=== PATIENT | male | born 1985 | race Hispanic/Latino ===

== ENCOUNTER 2020-10-28 20:12 | Emergency (ER) | payer SELFPAY ==
--- NOTE | 2020-10-28 21:17 | RAD REPORT ---
EXAM DESCRIPTION: RAD - Chest Single View - 10/28/2020 8:44 pm CLINICAL HISTORY: PAIN Chest pain. COMPARISON: Chest Single View dated 10/08/2016; Chest Single View dated 07/26/2016; Chest Single View d ated 06/10/2016; Chest Single View dated 06/09/2016 FINDINGS: Portable technique limits examination quality. Mild interstitial pulmonary opacities are present bilaterally which may represent infection or pulmon elizabeth edema. The heart is normal in size. No displaced fractures.
[2020-10-28] MEDS ORDERED: ONDANSETRON 4 MG/2 ML VIAL ONE (21:30)
[2020-10-28] MEDS ORDERED: KETOROLAC 30 MG/ML INJ ONE (21:30)
[2020-10-28] MEDS ORDERED: MORPHINE 4 MG/ML SYR ONE (21:30)
[2020-10-28 21:50] LABS: Absolute Lymphocytes (CBC) 3.3 K/uL (0.7-4.9); Basophils % 0.4 % (0-1.3); Lymphocytes % 37.9 % (15.3-44.8); MPV 9.1 fL (7.6-11.3)
[2020-10-28 21:55] LABS: Protime INR 1.03
[2020-10-28 22:03] LABS: ALT/SGPT 26 U/L (12-78); AST/SGOT 9 U/L (15-37); Albumin 3.7 g/dL (3.4-5.0); Alkaline Phosphatase 112 U/L (45-117); BUN Blood Urea Nitrogen 15 mg/dL (7-18); Bicarbonate 26 mmol/L (21-32); Bilirubin Direct < 0.1 mg/dL (0-0.2); Bilirubin Total 0.2 mg/dL (0.2-1.0); Glucose Level 100 mg/dL (74-106); Magnesium 2.2 mg/dL (1.8-2.4); NT PRO-BNP 15 pg/mL (<125); Potassium 3.9 mmol/L (3.5-5.1); Protein, Total 7.3 g/dL (6.4-8.2); Sodium Level 141 mmol/L (136-145); Troponin (Emerg Dept Use Only) < 0.02 ng/mL (0.0-0.045)
--- NOTE | 2020-10-28 22:11 | RAD REPORT ---
EXAM DESCRIPTION: CT - Chest Abdomen Pelvis W Cont - 10/28/2020 9:55 pm CLINICAL HISTORY: Chest and abdomen pain. Chest pain;Dyspnea COMPARISON: Abdomen Pelvis W Contrast dated 10/08/2016; Abdomen Pelvis W Contrast dated 06/09/2016 TECHNIQUE: Approximately 100 mL nonionic IV contrast was administered to the patient. All CT scans are performed using dose optimization technique as appropriate and may include automated exposure control or mA/KV adjustment according to patient size. FINDINGS: The lungs are clear.No pleural or pericardial effusion.No intrathoracic adenopathy. The liver, spleen, pancreas, adrenal glands and kidneys are within normal limits. No bowel obstruction, free air, free fluid or abscess. Appendectomy. No pathologic lymphadenopathy i n the abdomen or pelvis. No worrisome osseous finding. IMPRESSION: No acute abnormality detected.
--- NOTE | 2020-10-28 22:29 | ER ---
Nurse's Notes [facility] Name: Jarad Alexandra Age: 35 yrs Sex: Male : 1985 Arrival Date: 10/28/2020 Time: 20:16 Bed 19 Private MD: Diagnosis: Strain of muscle and tendon of back wall of thorax;Dyspnea;Low back pain Presentation: 10/28 20:24 Chief complaint: Patient states: he was transferring his step-daughter yesterday and bb did something to his back on the right side went to a chiropractor last night and today now symptoms are worse pain with respirations and difficulty breathing. Coronavirus screen: At this time, the client does not indicate any symptoms associated with coronavirus-19. Ebola Screen: No symptoms or risks identified at this time. Initial Sepsis Screen: Does the patient meet any 2 criteria? No. Patient's initial sepsis screen is negative. Does the patient have a suspected source of infection? No. Patient's initial sepsis screen is negative. Risk Assessment: Do you want to hurt yourself or someone else? Patient reports no desire to harm self or others. Onset of symptoms was October 27, 2020. 20:24 Method Of Arrival: Wheelchair bb 20:24 Acuity: CHRIS 2 bb Triage Assessment: 20:26 General: Appears uncomfortable, Behavior is cooperative, anxious. Pain: Complains of bb pain in back Pain currently is 10 out of 10 on a pain scale. Neuro: Level of Consciousness is awake, alert, obeys commands, Oriented to person, place, time, situation. Cardiovascular: Capillary refill < 3 seconds Patient's skin is warm and dry. Respiratory: Reports pain with respiration Respiratory effort is shallow, Respiratory pattern is tachypnea Onset: The symptoms/episode began/occurred yesterday, the patient has mild shortness of breath. Derm: Skin is pink, warm \\T\\ dry. Musculoskeletal: Circulation, motion, and sensation intact. Historical: - Allergies: 20:26 Latex, Natural Rubber; bb - Home Meds: 20:26 None [Active]; bb - PMHx: 20:26 Panic Attacks; bb - PSHx: 20:26 Appendectomy; bb - Immunization history:: Adult Immunizations up to date. - Social history:: Smoking status: Patient reports the use of cigarette tobacco products, smokes one-half pack cigarettes per day, Patient uses alcohol, occasionally. Patient/guardian denies using street drugs. Screenin:03 Abuse screen: Denies threats or abuse. Nutritional screening: No deficits noted. ea Tuberculosis screening: No symptoms or risk factors identified. Fall Risk None identified. Assessment: 21:22 General: Appears distressed, uncomfortable, Behavior is calm, cooperative, appropriate ad5 for age. Pain: Complains of pain in binta mid back that radiates to upper back and sides. Neuro: No deficits noted. Level of Consciousness is awake, alert, obeys commands, Oriented to person, place, time, situation, Appropriate for age Waiter are equal bilaterally. Cardiovascular: Reports shortness of breath, Heart tones S1 S2 present Capillary refill < 3 seconds Patient's skin is warm and dry. Pulses are all present. Rhythm is regular. Respiratory: Airway is patent Respiratory effort is even, shallow, Respiratory pattern is regular, symmetrical, Breath sounds are clear bilaterally. Onset: The symptoms/episode began/occurred yesterday, the patient has severe shortness of breath. GI: No deficits noted. No signs and/or symptoms were reported involving the gastrointestinal system. : No deficits noted. No signs and/or symptoms were reported regarding the genitourinary system. Derm: redness/bruising noted to L mid back. Musculoskeletal: Reports pain in back since yesterday s/p "caught my step-daughter while putting her in the wheelchair". Pt denies fall, reports pain since incident. Has been to chiropracter x 2 since with no improvement in s/s. 22:25 Reassessment: Patient appears in no apparent distress at this time. Patient and/or ad5 family updated on plan of care and expected duration. Pain level reassessed. Patient is alert, oriented x 3, equal unlabored respirations, skin warm/dry/pink. Patient states feeling better. Vital Signs: 20:24 BP 135 / 95; Pulse 88; Resp 24 S; Temp 98.8(O); Pulse Ox 100% on R/A; Weight 120.2 kg bb (R); Height 6 ft. 2 in. (187.96 cm) (R); Pain 10/10; 21:28 BP 133 / 92; Pulse 88; Resp 21 S; Pulse Ox 97% on R/A; ad5 22:25 BP 123 / 82; Pulse 79; Resp 20 S; Pulse Ox 98% on R/A; ad5 20:24 Body Mass Index 34.02 (120.20 kg, 187.96 cm) bb ED Course: 20:16 Patient arrived in ED. es 20:26 Triage completed. bb 20:26 Arm band placed on Patient placed in waiting room, Patient notified of wait time. bb Family accompanied patient. 20:44 XRAY Chest (1 view) In Process Unspecified. EDMS 21:03 Felice Razo MD is Attending Physician. aggie 21:03 Patient has correct armband on for positive identification. Bed in low position. Call ea light in reach. Side rails up X2. 21:08 Emanuel Fox is Primary Nurse. ad5 21:17 EKG done, by ED staff, reviewed by Felice Razo MD. mb4 21:24 Inserted saline lock: 20 gauge in right forearm, using aseptic technique. Blood ad5 collected. 21:25 quality assurance monitor body on. Pulse ox on. NIBP on. Door closed. Noise minimized. Head of bed ad5 elevated. 21:43 CT Chest, Abdomen, Pelvis - W/Contrast Sent. ad5 21:55 CT Chest, Abdomen, Pelvis - W/Contrast In Process Unspecified. EDMS 22:28 Doug Tolbert MD is Referral Physician. aggie 22:38 INCENTIVE SPIROMETRY Sent. ad5 22:49 No provider procedures requiring assistance completed. IV discontinued, intact, ad5 bleeding controlled, No redness/swelling at site. Pressure dressing applied. Administered Medications: 21:18 Drug: Ketorolac 30 mg Route: IVP; Site: right forearm; ad5 22:38 Follow up: Response: No adverse reaction; Pain is decreased; RASS: Alert and Calm (0) ad5 21:21 Drug: morphine 4 mg Route: IVP; Site: right forearm; ad5 22:38 Follow up: Response: No adverse reaction; Pain is decreased; RASS: Alert and Calm (0) ad5 21:21 Drug: Zofran (Ondansetron) 4 mg Route: IVP; Site: right forearm; ad5 22:37 Follow up: Response: No adverse reaction ad5 22:49 Drug: Valium (diazepam) 5 mg Route: PO; ad5 Outcome: 22:28 Discharge ordered by . aggie 22:49 Discharged to home ambulatory, with significant other. ad5 22:49 Condition: stable 22:49 Discharge instructions given to patient, significant other, Instructed on discharge instructions, follow up and referral plans. medication usage, Demonstrated understanding of instructions, follow-up care, medications, Prescriptions given X 3. 22:50 Patient left the ED. ad5 Signatures: Dispatcher [employer] Felice Cramer MD MD cha Salyer, Edna es Ballard, Brenda, RN RN bb Antunez, Elena, RN RN ea Baxter, Mackenzie [facility] Emanuel Fox ad5
--- NOTE | 2020-10-28 22:29 | EDPHYS ---
Physician Documentation [facility] Name: Jarad Alexandra Age: 35 yrs Sex: Male : 1985 Arrival Date: 10/28/2020 Time: 20:16 Bed 19 Private MD: ED Physician Felice Razo HPI: 10/28 21:36 This 35 yrs old Male presents to ER via Wheelchair with complaints of aggie Breathing Difficulty, injury to ribs, back flank with pain. 21:36 The patient has shortness of breath with light activity. Onset: The symptoms/episode aggie began/occurred today. Duration: The symptoms are continuous, and are steadily getting worse. The patient's shortness of breath is aggravated by nothing. Associated signs and symptoms: Pertinent positives: non-productive cough. Severity of symptoms: At their worst the symptoms were moderate in the emergency department the symptoms are unchanged. The patient has not experienced similar symptoms in the past. Historical: - Allergies: 20:26 Latex, Natural Rubber; bb - Home Meds: 20:26 None [Active]; bb - PMHx: 20:26 Panic Attacks; bb - PSHx: 20:26 Appendectomy; bb - Immunization history:: Adult Immunizations up to date. - Social history:: Smoking status: Patient reports the use of cigarette tobacco products, smokes one-half pack cigarettes per day, Patient uses alcohol, occasionally. Patient/guardian denies using street drugs. ROS: 21:37 Constitutional: Negative for fever, chills, and weight loss, Eyes: Negative for injury, aggie pain, redness, and discharge, ENT: Negative for injury, pain, and discharge, Neck: Negative for injury, pain, and swelling, Cardiovascular: Negative for chest pain, palpitations, and edema, Respiratory: Negative for shortness of breath, cough, wheezing, and pleuritic chest pain, Abdomen/GI: Negative for abdominal pain, nausea, vomiting, diarrhea, and constipation, : Negative for injury, bleeding, discharge, and swelling, MS/Extremity: Negative for injury and deformity, Skin: Negative for injury, rash, and discoloration, Neuro: Negative for headache, weakness, numbness, tingling, and seizure, Psych: Negative for depression, anxiety, suicide ideation, homicidal ideation, and hallucinations, Allergy/Immunology: Negative for hives, rash, and allergies, Endocrine: Negative for neck swelling, polydipsia, polyuria, polyphagia, and marked weight changes, Hematologic/Lymphatic: Negative for swollen nodes, abnormal bleeding, and unusual bruising. 21:37 Back: Positive for decreased range of motion, pain at rest, of the right subscapular area, thoracic area and right mid back. Exam: 21:37 Constitutional: This is a well developed, well nourished patient who is awake, alert, aggie and in no acute distress. Head/Face: Normocephalic, atraumatic. Eyes: Pupils equal round and reactive to light, extra-ocular motions intact. Lids and lashes normal. Conjunctiva and sclera are non-icteric and not injected. Cornea within normal limits. Periorbital areas with no swelling, redness, or edema. ENT: Nares patent. No nasal discharge, no septal abnormalities noted. Tympanic membranes are normal and external auditory canals are clear. Oropharynx with no redness, swelling, or masses, exudates, or evidence of obstruction, uvula midline. Mucous membranes moist. Neck: Trachea midline, no thyromegaly or masses palpated, and no cervical lymphadenopathy. Supple, full range of motion without nuchal rigidity, or vertebral point tenderness. No Meningismus. Chest/axilla: Normal chest wall appearance and motion. Nontender with no deformity. No lesions are appreciated. Cardiovascular: Regular rate and rhythm with a normal S1 and S2. No gallops, murmurs, or rubs. Normal PMI, no JVD. No pulse deficits. Respiratory: Lungs have equal breath sounds bilaterally, clear to auscultation and percussion. No rales, rhonchi or wheezes noted. No increased work of breathing, no retractions or nasal flaring. Abdomen/GI: Soft, non-tender, with normal bowel sounds. No distension or tympany. No guarding or rebound. No evidence of tenderness throughout. Male : Normal genitalia with no discharge or lesions. Skin: Warm, dry with normal turgor. Normal color with no rashes, no lesions, and no evidence of cellulitis. MS/ Extremity: Pulses equal, no cyanosis. Neurovascular intact. Full, normal range of motion. Neuro: Awake and alert, GCS 15, oriented to person, place, time, and situation. Cranial nerves II-XII grossly intact. Motor strength 5/5 in all extremities. Sensory grossly intact. Cerebellar exam normal. Normal gait. Psych: Awake, alert, with orientation to person, place and time. Behavior, mood, and affect are within normal limits. 21:37 Back: pain, that is mild, of the right subscapular area, thoracic area and right mid back, ROM is painful, normal spinal alignment noted, CVA tenderness, is absent, muscle spasm, is appreciated in the right scapular area, right subscapular area and right mid back. 21:37 Musculoskeletal/extremity: DVT Exam: No signs of deep vein thrombosis. no pain, no swelling, no tenderness, negative Homans' sign noted on exam, no appreciated bluish discoloration, no erythema, no increased warmth. 22:01 ECG was reviewed by the Attending Physician. [facility] Vital Signs: 20:24 BP 135 / 95; Pulse 88; Resp 24 S; Temp 98.8(O); Pulse Ox 100% on R/A; Weight 120.2 kg bb (R); Height 6 ft. 2 in. (187.96 cm) (R); Pain 10/10; 21:28 BP 133 / 92; Pulse 88; Resp 21 S; Pulse Ox 97% on R/A; ad5 22:25 BP 123 / 82; Pulse 79; Resp 20 S; Pulse Ox 98% on R/A; ad5 20:24 Body Mass Index 34.02 (120.20 kg, 187.96 cm) bb MDM: 21:03 Patient medically screened. aggie 21:44 Differential diagnosis: arthritis, chronic back pain, Fatigue Fracture Joint Injury aggie Ligament Injury Obesity ruptured disc, Scoliosis spinal injury, Pneumothorax. Antibiotic administration: Not indicated. The patient's Wells Deep Vein Thrombosis Score was calculated as follows: Total Score: 0-2 Pts- Low Risk. The patient's pulmonary embolism risk score was calculated as follows: Total Score: 0-2 points. This patient was found to be at low risk for a pulmonary embolism by using the Well's assessment criteria. Immunization status:. Data reviewed: vital signs, nurses notes, lab test result(s), EKG, radiologic studies, CT scan, plain films. 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 Test interpretation: by ED physician or midlevel provider: ECG, plain radiologic studies. Counseling: I had a detailed discussion with the patient and/or guardian regarding: the historical points, exam findings, and any diagnostic results supporting the discharge/admit diagnosis, lab results, radiology results. 10/28 21:06 Order name: Basic Metabolic Panel [facility] 10/28 21:06 Order name: CBC with Diff; Complete Time: 22:[address] [facility] 10/28 21:06 Order name: LFT's; Complete Time: : [facility] 10/28 21:06 Order name: Magnesium; Complete Time: : [facility] 10/28 21:06 Order name: NT PRO-BNP; Complete Time: 22: [facility] 10/28 21:06 Order name: PT-INR; Complete Time: : [facility] 10/28 20:28 Order name: XRAY Chest (1 view); Complete Time: 22: 10/28 21:06 Order name: Troponin (emerg Dept Use Only); Complete Time: 22: [facility] 10/28 21:06 Order name: CT Chest, Abdomen, Pelvis - W/Contrast; Complete Time: : [facility] 10/28 21:06 Order name: Basic Metabolic Panel; Complete Time: 22:26 EDMS 10/28 22:30 Order name: INCENTIVE SPIROMETRY [facility] 10/28 21:06 Order name: EKG; Complete Time: 21: [facility] 10/28 21:06 Order name: Cardiac monitoring; Complete Time: 21: [facility] 10/28 21:06 Order name: EKG - Nurse/Tech; Complete Time: 21:[address] [facility] 10/28 21:06 Order name: IV Saline Lock; Complete Time: 21: [facility] 10/28 21:06 Order name: Labs collected and sent; Complete Time: 21: [facility] 10/28 21:06 Order name: O2 Sat Monitoring; Complete Time: 21: [facility] EC:01 Rate is 88 beats/min. Rhythm is regular. QRS [place] is Normal. SC interval is normal. QRS aggie interval is normal. QT interval is normal. No Q waves. T waves are Normal. No ST changes noted. Clinical impression: Normal ECG and No evidence of ischemia. Interpreted by me. Reviewed by me. Administered Medications: 21:18 Drug: Ketorolac 30 mg Route: IVP; Site: right forearm; ad5 22:38 Follow up: Response: No adverse reaction; Pain is decreased; RASS: Alert and Calm (0) ad5 21:21 Drug: morphine 4 mg Route: IVP; Site: right forearm; ad5 22:38 Follow up: Response: No adverse reaction; Pain is decreased; RASS: Alert and Calm (0) ad5 21:21 Drug: Zofran (Ondansetron) 4 mg Route: IVP; Site: right forearm; ad5 22:37 Follow up: Response: No adverse reaction ad5 22:49 Drug: Valium (diazepam) 5 mg Route: PO; ad5 Disposition Summary: 10/28/20 22:28 Discharge Ordered Location: Home aggie Problem: new aggie Symptoms: have improved aggie Condition: Stable aggie Diagnosis - Strain of muscle and tendon of back wall of thorax aggie - Dyspnea aggie - Low back pain aggie Followup: aggie - With: Private Physician - When: 2 - 3 days - Reason: Recheck today's complaints, Continuance of care, Re-evaluation by your physician Followup: aggie - With: Doug Tolbert MD - When: 2 - 3 days - Reason: Recheck today's complaints, Continuance of care, Re-evaluation by your physician Discharge Instructions: - Discharge Summary Sheet aggie - Acute Back Pain, Adult aggie - Musculoskeletal Pain aggie - Back Injury Prevention, [id number] aggie - How to Use an Incentive Spirometer aggie Forms: - Medication Reconciliation Form aggie - Thank You Letter aggie - Antibiotic Education aggie - Prescription Opioid Use aggie Prescriptions: - Ibuprofen 600 mg Oral Tablet - take 1 tablet by ORAL route every 6 hours As needed take with food; 30 tablet; [facility] Refills: 0, Product Selection Permitted - Valium 5 mg Oral Tablet - take 1 tablet by ORAL route every 8 hours As needed; 20 tablet; Refills: 0, [facility] Product Selection Permitted - Tramadol 50 mg Oral Tablet - take 2 tablet by ORAL route every 8 hours as needed; 24 tablet; Refills: 0, [facility] Product Selection Permitted Signatures: Dispatcher [employer] Felice Cramer MD MD cha Ballard, Brenda, RN RN bb Davidson, Andrea ad5
[2020-10-28 22:58] VITALS: TEMP 98.8
[2020-10-28] MEDS ORDERED: DIAZEPAM 5 MG TABLET ONE (23:01)
[2020-10-28 23:02] VITALS: BP 123/82; O2SAT 98
--- NOTE | 2020-10-29 07:43 | EKG ---
Test Date: 2020-10-28 Test Time: 21:15:24 Java [employer] Developer: CHAPIS MEASUREMENT RESULTS: Intervals: Rate: 88 WA: 138 QRSD: 84 QT: 338 QTc: 408 [place]: P: 61 WA: 138 QRS: -10 T: 73 INTERPRETIVE STATEMENTS: Normal sinus rhythm Normal ECG Compared to ECG 10/08/2016 11:57:21 Sinus arrhythmia no longer present Atrial premature complex(es) no longer present Electronically Signed On 10-29-20 07:42:31 CDT by Adonis Walker
== END 2020-10-28 22:50 | disposition home or self-care (01) ==
LOC: ER 20:12
DX: S29.012A Strain of muscle and tendon of back wall of thorax, initial encounter (principal); M54.5 Low back pain; F17.210 Nicotine dependence, cigarettes, uncomplicated; Z91.040 Latex allergy status; Z91.048 Other nonmedicinal substance allergy status
CPT/HCPCS: 36415; 71045; 71260; 74177; 80048; 80076; 82565; 83735; 83880; 84484; 85025; 85610; 93005; 96374; 96375; 99285; J2405; Q9967

== ENCOUNTER 2023-08-02 15:30 | Emergency (ER) | payer BC ==
[2023-08-02] MEDS ORDERED: MORPHINE 4 MG/ML SYR ONE (16:13)
[2023-08-02] MEDS ORDERED: KETOROLAC 30 MG/ML INJ ONE (16:13)
[2023-08-02] MEDS ORDERED: GABAPENTIN 300 MG CAP ONE (16:13)
[2023-08-02] MEDS ORDERED: dexAMETHasone 10 MG/ML VIAL ONE (16:13)
--- NOTE | 2023-08-02 17:29 | EDPHYS ---
Physician Documentation [facility] Name: Jarad Alexandra Age: 38 yrs Sex: Male : 1985 Arrival Date: 08/02/2023 Time: 15:30 Bed DX4 Private MD: ED Physician Edison Houser HPI: 08/01 16:09 This 38 yrs old Male presents to ER via Ambulatory with complaints of Back rn Pain, Leg Pain. 16:09 The patient presents with pain that is chronic. The symptoms are located in the low rn back. Onset: The symptoms/episode began/occurred 2 year(s) ago. The pain radiates to the right leg and left leg. Associated signs and symptoms: Pertinent negatives: fever, incontinence, urinary retention, weakness. Modifying factors: The patient symptoms are alleviated by the patient symptoms are aggravated by any movement. Severity of symptoms: At their worst the symptoms were moderate, in the emergency department the symptoms are unchanged. The patient has experienced similar episodes in the past. Patient reports low back pain that radiates to bilateral legs. Has been happening for 2 years. Just recently had appointment with neurosurgeon and obtained MRI which showed herniated lumbar disks.. Historical: - Allergies: 15:39 Latex; ll1 - Home Meds: 15:39 None [Active]; ll1 - PMHx: 15:39 Panic Attacks; ll1 - PSHx: 15:39 Appendectomy; ll1 - Immunization history:: Adult Immunizations up to date. - Social history:: Smoking status: Patient denies any tobacco usage or history of. - Family history:: not pertinent. - Hospitalizations: : No recent hospitalization is reported. ROS: 16:09 Constitutional: Negative for fever, chills, and weight loss, Neck: Negative for injury, rn pain, and swelling, Cardiovascular: Negative for chest pain, palpitations, and edema, Respiratory: Negative for shortness of breath, cough, wheezing, and pleuritic chest pain, Abdomen/GI: Negative for abdominal pain, nausea, vomiting, diarrhea, and constipation, Back: + back pain MS/Extremity: Negative for injury and deformity, Skin: Negative for injury, rash, and discoloration, Neuro: Negative for headache, weakness, numbness, tingling, and seizure, Exam: 16:09 Constitutional: This is a well developed, well nourished patient who is awake, alert, rn and in no acute distress. Cardiovascular: Regular rate and rhythm. No pulse deficits. Respiratory: No increased work of breathing, no retractions or nasal flaring. Abdomen/GI: Soft, non-tender Back: No spinal tenderness. No costovertebral tenderness. Full range of motion. Neuro: Awake and alert, GCS 15, oriented to person, place, time, and situation. Cranial nerves II-XII grossly intact. Motor strength 5/5 in all extremities. Sensory grossly intact. Cerebellar exam normal. Normal gait. Vital Signs: 15:36 BP 157 / 102; Pulse 98; Resp 16; Temp 97.2; Pulse Ox 99% ; Pain 10/10; ll1 17:30 BP 158 / 74; Pulse 89; Resp 16; Temp 98.1; Pulse Ox 100% on R/A; iw 15:36 Pain Scale: Adult ll1 MDM: 15:39 Patient medically screened. rn 17:27 Differential diagnosis: arthritis, Fatigue sprain, Disc herniation, radiculopathy. Data rn reviewed: vital signs, nurses notes, and as a result, I will discharge patient. Counseling: I had a detailed discussion with the patient and/or guardian regarding the historical points, exam findings, and any diagnostic results supporting the discharge/admit diagnosis, the need for outpatient follow up, to return to the emergency department if symptoms worsen or persist or if there are any questions or concerns that arise at home. Special discussion: I discussed with the patient/guardian in detail that at this point there is no indication for admission to the hospital. It is understood, however, that if the symptoms persist or worsen the patient needs to return immediately for re-evaluation. Based on the history and exam findings, there is no indication for further emergent testing or inpatient evaluation. I discussed with the patient/guardian the need to see the back specialist for further evaluation of the symptoms. ED course: Patient with recent MRI that showed multilevel disc herniations. No gross changes, just ran out of pain medication recently and is out of town. No weakness. Ambulatory. No signs of cord compression. This has been going on and off for 2 years now. Will discharge home now with gabapentin and some pain medication with instructions to follow-up with back specialist/neurosurgeon.. 08/01 15:46 Order name: IV Start; Complete Time: 16:02 rn Administered Medications: 16:24 Drug: Decadron - Dexamethasone IVP 10 mg IVP once Route: IVP; Site: right wrist; iw 17:00 Follow up: Response: No adverse reaction iw 16:24 Drug: Ketorolac IVP 15 mg IVP once Route: IVP; Site: right wrist; iw 17:15 Follow up: Response: No adverse reaction; Pain is decreased iw 16:24 Drug: Gabapentin PO 300 mg PO once Route: PO; iw 17:10 Follow up: Response: No adverse reaction; Pain is decreased iw 16:25 Drug: morphine IVP or IV 4 mg IVP once over 4 mins Route: IVP; Infused Over: 4 mins; iw Site: right wrist; 17:20 Follow up: Response: No adverse reaction; Pain is decreased iw Disposition Summary: 08/02/23 17:28 Discharge Ordered Notes: Location: Home rn Problem: an ongoing problem rn Symptoms: have improved rn Condition: Stable rn Diagnosis - Low back pain rn - Radiculopathy, lumbosacral region rn Followup: rn - With: Private Physician - When: As needed - Reason: Recheck today's complaints, Re-evaluation by your physician Discharge Instructions: - Discharge Summary Sheet rn - Acute Back Pain, Adult rn - Lumbosacral Radiculopathy rn Forms: - Medication Reconciliation Form rn - Thank You Letter rn - Antibiotic furnace cooler - Prescription Opioid Use rn - Patient Portal Instructions rn - Leadership Thank You Letter rn Prescriptions: - gabapentin 300 mg Oral capsule - take 1 capsule ORAL route 2 times per day As needed; 14 capsule; Refills: 0, rn Product Selection Permitted - Tramadol 50 mg Oral Tablet - take 1 tablet ORAL route every 8 hours as needed; 12 tablet; Refills: 0, rn Product Selection Permitted Signatures: Sydney Love RN RN iw Edison Houser MD MD rn Lewis, Lynsay, RN RN ll1
--- NOTE | 2023-08-02 17:29 | ER ---
Nurse's Notes [facility] Name: Jarad Alexandra Age: 38 yrs Sex: Male : 1985 Arrival Date: 08/02/2023 Time: 15:30 Bed DX4 Private MD: Diagnosis: Low back pain;Radiculopathy, lumbosacral region Presentation: 08/01 15:36 Chief complaint: Patient states: Low back pain that radiates into both legs off/on for ll1 years, constant pain now. Diagnosed with herniated discs and sciatica last month. Coronavirus screen: Client denies travel out of the [place] in the last 14 days. At this time, the client does not indicate any symptoms associated with coronavirus-19. Ebola Screen: Patient denies travel to an Ebola-affected area in the 21 days before illness onset. Initial Sepsis Screen: Does the patient meet any 2 criteria? No. Patient's initial sepsis screen is negative. Does the patient have a suspected source of infection? No. Patient's initial sepsis screen is negative. Risk Assessment: Do you want to hurt yourself or someone else? Patient reports no desire to harm self or others. Onset of symptoms was July 01, 2023. 15:36 Method Of Arrival: Ambulatory 1 15:36 Acuity: CHRIS 3 ll1 Triage Assessment: 15:37 General: Appears uncomfortable, Behavior is calm, cooperative, appropriate for age. iw Pain: Complains of pain in low back. Musculoskeletal: Circulation, motion, and sensation intact. Capillary refill < 3 seconds, Reports pain in low back. Historical: - Allergies: 15:39 Latex; ll1 - Home Meds: 15:39 None [Active]; ll1 - PMHx: 15:39 Panic Attacks; ll1 - PSHx: 15:39 Appendectomy; ll1 - Immunization history:: Adult Immunizations up to date. - Social history:: Smoking status: Patient denies any tobacco usage or history of. - Family history:: not pertinent. - Hospitalizations: : No recent hospitalization is reported. Screenin:24 [facility] ED Fall Risk Assessment (Adult) Score/Fall Risk Level 0 - 2 = Low Risk. Abuse iw screen: Denies threats or abuse. Denies injuries from another. Nutritional screening: No deficits noted. Tuberculosis screening: No symptoms or risk factors identified. Assessment: 16:24 Reassessment: No changes from previously documented assessment. Patient and/or family iw updated on plan of care and expected duration. Pain level reassessed. Patient is alert, oriented x 3, equal unlabored respirations, skin warm/dry/pink. Vital Signs: 15:36 BP 157 / 102; Pulse 98; Resp 16; Temp 97.2; Pulse Ox 99% ; Pain 10/10; ll1 17:30 BP 158 / 74; Pulse 89; Resp 16; Temp 98.1; Pulse Ox 100% on R/A; iw 15:36 Pain Scale: Adult ll1 ED Course: 15:33 Patient arrived in ED. rg4 15:36 Arm band placed on. ll1 15:38 Triage completed. ll1 15:39 Edison Houser MD is Attending Physician. rn 16:02 Inserted saline lock: 20 gauge in right wrist, using aseptic technique. bc6 16:30 Patient has correct armband on for positive identification. iw 17:37 No provider procedures requiring assistance completed. IV discontinued, intact, iw bleeding controlled, No redness/swelling at site. Pressure dressing applied. 17:39 Sydney Love, FIOR is Primary Nurse. iw Administered Medications: 16:24 Drug: Decadron - Dexamethasone IVP 10 mg IVP once Route: IVP; Site: right wrist; iw 17:00 Follow up: Response: No adverse reaction iw 16:24 Drug: Ketorolac IVP 15 mg IVP once Route: IVP; Site: right wrist; iw 17:15 Follow up: Response: No adverse reaction; Pain is decreased iw 16:24 Drug: Gabapentin PO 300 mg PO once Route: PO; iw 17:10 Follow up: Response: No adverse reaction; Pain is decreased iw 16:25 Drug: morphine IVP or IV 4 mg IVP once over 4 mins Route: IVP; Infused Over: 4 mins; iw Site: right wrist; 17:20 Follow up: Response: No adverse reaction; Pain is decreased iw Medication: 17:00 VIS not applicable for this client. iw Outcome: 17:28 Discharge ordered by . rn 17:38 Discharged to home ambulatory, with family, iw 17:38 Condition: good 17:38 Discharge instructions given to patient, family, Instructed on discharge instructions, follow up and referral plans. Demonstrated understanding of instructions, follow-up care, medications, Prescriptions given X 2, 17:39 Patient left the ED. iw Signatures: Sydney Love RN RN iw Nieto, Roman, MD MD rn Garcia, Rubi rg4 Ned June RN RN ll1 Nadya Fernandez bc6
[2023-08-02 19:44] VITALS: BP 157/102; TEMP 97.2; O2SAT 99
== END 2023-08-02 17:39 | disposition home or self-care (01) ==
LOC: ER 15:30
DX: M54.17 Radiculopathy, lumbosacral region (principal); Z91.040 Latex allergy status
CPT/HCPCS: 96375; 96374; 99284; J1100

== ENCOUNTER 2024-06-12 17:32 | Emergency (ER) | payer BC ==
--- OUTSIDE RECORDS SUMMARY | 2024-06-12 17:34 | XMS REPORT | Continuity of Care Document ---
Author Name Unknown Address [address] [place] [address] [facility] thconnect Address [address] [place] [address] Care Team Providers Care Jack Strip Assembler Name Role Phone VICKI CHUNG Attending Clinician Unavailable MD TEJAS Attending Clinician UnavailSADAF Taylor Attending Clinician Unavailable PETER LUEVANO Attending Clinician UnaJOSEMANUEL Santiago Attending Clinician Unavailable Payers Payer Name Policy Type Policy Number Effective Date Expirati on Date Source BCBS 2 [id number] 2023 00:00:00 [place] OUT OF [place] [id number] 2023 00:00:00 Allergies, Adverse Reactions, Alerts Allergy Name Allergy Type Status Severity Reaction(s) Onset Date Inactive Date Treating Clinician Comments Source Latex Propensi ty to adverse reaction s Active Anaphylaxis 2016-06-09 00:00: 00 Geovanna Barkley - Externa l Social History Social Habit Start Date Stop Date Quantity Comments Source Sexual orientation Ash Barkley - External Alcoholic beverage intake 2023-08-07 00:00:00 2023-08-07 00:00:00 Ex-drinker (finding) Geovanna Barkley - External History of Social function 2023-08-07 00:00:00 2023-08-07 00:00:00 Geovanna Barkley - External Tobacco use and exposure 2023-08-03 00:00:00 2023-08-03 00:00:00 Smokeless tobacco non-user Geovanna Barkley - External Sex [birth year] at 1985 00:00:00 1985 00:00:00 Geovanna Chin Smoking Status Start Date Stop Date Source Never smoked tobacco Geovanna Perdomo External Medications Ordered Medication Name Filled Medication Name Start Date Stop Date Current Medication? Ordering Clinician Indication Dosage Frequency Signature (SIG) Comments Components Source Gabapentin 300 MG oral Capsule 08-02 00:00: 00 Yes 300mg Take 1 capsule (300 mg total) by mouth 2 times daily. Geovanna earl Tramadol HCl (ULTRAM) 50 MG oral Tablet 08-02 00:00: 00 Yes [id number] 50mg [id number] 3D Take 1 tablet (50 mg total) by mouth every 8 hours as needed. Geovanna earl Diclofenac Sodium 75 MG oral Tablet Delayed Response 08-02 00:00: 00 Yes 75mg Take 1 tablet (75 mg total) by mouth 2 times daily. Geovanna earl Gabapentin 300 MG oral Capsule 08-01 00:00: 00 08-02 00:00 :00 No 300mg Take 1 capsule (300 mg total) by mouth 2 times daily. Geovanna earl Tramadol HCl (ULTRAM) 50 MG oral Tablet 08-01 00:00: 00 08-02 00:00 :00 No 50mg [id number] 3D Take 1 tablet (50 mg total) by mouth every 8 hours as needed. Geovnana earl Vital Signs Vital Name Observation Time Observation Value Comments Miguel Ángel antony Body height 2023-08-07 16:06:00 189.2 cm Francheska Barkley - External Body weight 2023-08-07 16:06:00 128.822 kg Francheska Barkley - External BMI 2023-08-07 16:06:00 35.98 kg/m2 Francheska Alejandroold - External Systolic blood pressure 2023-08-03 20:36:00 138 mm[Hg] Geovanna Bauer ld - External Diastolic blood pressure 2023-08-03 20:36:00 76 mm[Hg] Geovanna Seybo ld - External Heart rate 2023-08-03 20:36:00 84 /min Flavio y Seybold - External Body temperature 2023-08-03 20:36:00 36.56 Shirley Geovanna Seybold - External Respiratory rate 2023-08-03 20:36:00 18 /min Geovanna Seybold - External Body height 2023-08-03 20:36:00 189.2 cm Francheska ey Seybold - External Body weight 2023-08-03 20:36:00 128.878 kg Francheska ey Seybold - External BMI 2023-08-03 20:36:00 35.99 kg/m2 Francheska ey Seybold - External Procedures Procedure Date / Time Performed Performing Clinicia n Source THORACIC SPINE 3 VIEWS 2023-08-07 17:03:07 Dural, Josemanuel Austin Seybold - External LUMBAR SPINE 2 VIEWS UPRIGHT 2023-08-07 17:02:30 Dural, Josemanuel Austin Seybold - External CERVICAL SPINE - 2 VIEW 2023-08-07 17:01:36 Dural, Josemanuel Austin Seybold - External Encounters Start Date/Time End Date/Time Encounter Type Admission Type Attending [facility] Care Department Encounter ID Source 2024-06-27 14:00:00 2024-06-27 14:00:00 Outpatient VICKI CHUNG [id number] [facility] 2024-05-28 15:00:00 2024-05-28 15:00:00 Outpatient VICKI CHUNG [id number] [facility] 2024-04-01 09:39:18 2024-04-01 09:55:59 Outpatient Elective MHEOUT MHEOUT [id number] [facility]OUT 2023-10-08 00:00:00 2023-10-08 00:00:00 Outpatient MD GEOVANNA HERMAN [id number] [facility] 2023-10-05 00:00:00 2023-10-05 00:00:00 Outpatient SADAF MANDEL [id number] [facility] 2023-09-03 00:00:00 2023-09-03 00:00:00 [facility] SDAAF [facility]DEL [id number] [facility] 2023-08-30 00:00:00 2023-08-30 00:00:00 Outpatient SADAF MANDEL [facility] [id number] [facility] 2023-08-22 08:30:00 2023-08-22 08:30:00 Outpatient PETER LUEVANO [facility] [id number] [facility] 2023-08-21 00:00:00 2023-08-21 00:00:00 Outpatient SADAF MANDEL [facility] [id number] [facility] 2023-08-09 00:00:00 2023-08-09 00:00:00 Outpatient MD [facility]OVANNA HERMAN [id number] [facility] 2023-08-07 11:50:00 2023-08-07 11:50:00 Outpatient GEOVANNA AUSTIN [id number] [facility] 2023-08-07 11:45:00 2023-08-07 11:45:00 Outpatient GEOVANNA AUSTIN [id number] [facility] 2023-08-07 11:40:00 2023-08-07 11:40:00 Outpatient GEOVANNA AUSTIN [id number] [facility] 2023-08-07 11:30:00 2023-08-07 11:30:00 Outpatient JOSEMANUEL MURPHY [id number] [facility] 2023-08-07 11:20:00 2023-08-07 11:20:00 Outpatient [facility]NA [facility]USTIN [id number] [facility] 2023-08-03 15:15:00 2023-08-03 15:15:00 Outpatient SADAF MANDEL [facility] [place] [id number] [facility] Results Test Description Test Time Test Comments Results Resul t Comments Source CERVICAL SPINE - 2 VIEW 2023-08-07 17:15:19 HISTORY: ?SPINE PAINIMAGES: ?4 views, cervical spine; 5 views, thoracic spine; 2 views, lumbar spineFINDINGS: ?There is mild ?degenerative narrowing of all of the cervical discs with osteophytes of the uncovertebral joints. There is a very mild biconcave thoracolumbar scoliosis. There are 4 lumbar type segments.There is a transitional vertebra at the lumbosacral junction with a fusion on the right and lumbarization on the left. There is moderate narrowing of the L4-transitional disc. [facility] LUMBAR SPINE 2 VIEWS UPRIGHT 2023-08-07 17:15:19 HISTORY: ?SPINE PAINIMAGES: ?4 views, cervical spine; 5 views, thoracic spine; 2 views, lumbar spineFINDINGS: ?There is mild ?degenerative narrowing of all of the cervical discs with osteophytes of the uncovertebral joints. There is a very mild biconcave thoracolumbar scoliosis. There are 4 lumbar type segments.There is a transitional vertebra at the lumbosacral junction with a fusion on the right and lumbarization on the left. There is moderate narrowing of the L4-transitional disc. [facility] - External THORACIC SPINE 3 VIEWS 2023-08-07 17:15:19 HISTORY: ?SPINE PAINIMAGES: ?4 views, cervical spine; 5 views, thoracic spine; 2 views, lumbar spineFINDINGS: ?There is mild ?degenerative narrowing of all of the cervical discs with osteophytes of the uncovertebral joints. There is a very mild biconcave thoracolumbar scoliosis. There are 4 lumbar type segments.There is a transitional vertebra at the lumbosacral junction with a fusion on the right and lumbarization on the left. There is moderate narrowing of the L4-transitional disc. [facility] - External Notes Date/Time Note Provider Source 2023-08-07 11:15:09 Chief Complaint Patient presents with Spine Problem 38 year old male here today for chronic spine pain. Patient stated overall pain has been onset for 2 plus years, and presented from doing heavy work loads. Nakita Albrecht MA II [facility]
--- NOTE | 2024-06-12 18:40 | RAD REPORT ---
EXAMINATION: XR LEFT ELBOW CLINICAL INDICATION: Male, 39 years old. PAIN TECHNIQUE: Multiple views of the left elbow were obtained. COMPARISON: No prior exam. FINDINGS: No evidence of fracture or dislocation. Normal alignment. No joint effusion. Soft tissues a re unremarkable.
--- NOTE | 2024-06-12 18:40 | RAD REPORT ---
EXAMINATION: XR LEFT SHOULDER CLINICAL INDICATION: Male, 39 years old. PAIN TECHNIQUE: Multiple views of the left shoulder were obtained. COMPARISON: No prior exam. FINDINGS: No evidence of fracture or dislocation. Normal alignment. No evidence of arthropathy or oth er focal bone lesion. Soft tissues are unremarkable. IMPRESSION: No significant bone or joint abnormalities.
--- NOTE | 2024-06-12 18:40 | RAD REPORT ---
EXAM: XR LEFT HAND HISTORY: Pain. PAIN COMPARISON: None TECHNIQUE: Multiple projections of the left hand submitted. FINDINGS: No evidence of acute fracture or dislocation. Joint alignment is maintained. No soft tissu e swelling is seen.. No significant degenerative changes are present.
[2024-06-12] MEDS ORDERED: KETOROLAC 30 MG/ML INJ ONE (19:24)
[2024-06-12] MEDS ORDERED: methocarbamoL 500 MG TAB ONE (19:24)
[2024-06-12] MEDS ORDERED: GABAPENTIN 300 MG CAP ONE (19:24)
--- NOTE | 2024-06-12 19:53 | ER ---
Nurse's Notes [facility] Name: Jarad Alexandra Age: 39 yrs Sex: Male : 1985 Arrival Date: 06/12/2024 Time: 17:32 Bed 12 Private MD: Diagnosis: Pain in left arm Presentation: 06/12 17:50 Chief complaint: Patient states: he has been having left arm pain for a couple of ap3 weeks. patient states that when he squeezes his hand, the pain shoots up into his elbow and into his upper arm. patient reports the pain has gotten progressively worse over the last couple of weeks. patient currently rates his pain as a 10/10 on the pain scale. Coronavirus screen: At this time, the client does not indicate any symptoms associated with coronavirus-19. Ebola Screen: No symptoms or risks identified at this time. Initial Sepsis Screen: Does the patient meet any 2 criteria? No. Patient's initial sepsis screen is negative. Does the patient have a suspected source of infection? No. Patient's initial sepsis screen is negative. Risk Assessment: Do you want to hurt yourself or someone else? Patient reports no desire to harm self or others. Onset of symptoms is unknown. 17:50 Method Of Arrival: Ambulatory ap3 17:50 Acuity: CHRIS 3 ap3 Triage Assessment: 17:53 General: Appears in no apparent distress. Behavior is calm, cooperative, appropriate ap3 for age. Pain: Complains of pain in left arm Pain currently is 10 out of 10 on a pain scale. Pain began gradually. Neuro: Level of Consciousness is awake, alert, obeys commands, Oriented to person, place, time, situation, Appropriate for age. Cardiovascular: Patient's skin is warm and dry. Respiratory: Airway is patent Respiratory effort is even, unlabored, Respiratory pattern is regular, symmetrical. Historical: - Allergies: 17:52 Latex; ap3 - PMHx: 17:52 Panic Attacks; ap3 - PSHx: 17:52 Appendectomy; ap3 - Immunization history:: Client reports receiving the 2nd dose of the Covid vaccine, Flu vaccine is not up to date. - Infectious Disease History:: Denies. - Social history:: Smoking status: Reported history of juuling and/or vaping. - Family history:: not pertinent. Screenin:53 [facility] ED Fall Risk Assessment (Adult) History of falling in the last 3 months, ap3 including since admission No falls in past 3 months (0 pts) Confusion or Disorientation No (0 pts) Intoxicated or Sedated No (0 pts) Impaired Gait No (0 pts) Mobility Assist Device Used No (0 pt) Altered Elimination No (0 pt) Score/Fall Risk Level 0 - 2 = Low Risk Oriented to surroundings, Maintained a safe environment, Educated pt \T\ family on fall prevention, incl call for assistance when getting out of bed, Assessed \T\ reinforced patient's understanding of fall precautions, Hourly rounding (assess needs \T\ fall precautionary measures) done, Used ambulatory aids as needed (educated on \T\ assisted with). Abuse screen: Denies threats or abuse. Nutritional screening: No deficits noted. Tuberculosis screening: No symptoms or risk factors identified. Assessment: 19:51 Reassessment: Patient and/or family updated on plan of care and expected duration. Pain br2 level reassessed. Patient is alert, oriented x 3, equal unlabored respirations, skin warm/dry/pink. 20:02 General: Appears uncomfortable, Behavior is calm, cooperative. Pain: Complains of pain br2 in left arm Pain radiates to left base of the skull. Neuro: Level of Consciousness is awake, alert, obeys commands, Oriented to person, place, time, situation. Musculoskeletal: Reports weakness in left hand. Vital Signs: 17:50 BP 141 / 102; Pulse 94; Resp 18; Temp 98.4(TE); Pulse Ox 97% on R/A; Weight 136.98 kg; ap3 Height 6 ft. 2 in. ; Pain 10/10; 17:50 Body Mass Index 38.77 (136.98 kg, 187.96 cm) ap3 17:50 Pain Scale: Adult ap3 ED Course: 17:34 Patient arrived in ED. mr 17:43 Andrez Hall MD is Attending Physician. rt 17:52 Triage completed. ap3 17:53 Arm band placed on right wrist. ap3 18:36 Hand Left 3 View XRAY In Process Unspecified. EDMS 18:36 Elbow Left 3 View XRAY In Process Unspecified. EDMS 18:36 Shoulder Left (2 View) XRAY In Process Unspecified. EDMS 19:51 [place], Kim, RN is Primary Nurse. br2 20:06 Patient has correct armband on for positive identification. Provided Education on: br2 discharge instructions. 20:06 No provider procedures requiring assistance completed. Patient did not have IV access br2 during this emergency room visit. Administered Medications: 19:59 Drug: Gabapentin PO 300 mg PO once Route: PO; br2 20:07 Follow up: Response: Medication administered at discharge. br2 19:59 Drug: Methocarbamol PO 500 mg PO once Route: PO; br2 20:07 Follow up: Response: Medication administered at discharge. br2 20:00 Drug: Ketorolac IM 30 mg IM once Route: IM; Site: right gluteus; br2 20:07 Follow up: Response: Medication administered at discharge. br2 Outcome: 19:53 Discharge ordered by . rt 20:06 Discharged to home ambulatory, br2 20:06 Condition: good 20:06 Discharge instructions given to patient, Instructed on discharge instructions, follow up and referral plans. Demonstrated understanding of instructions, follow-up care, medications, Prescriptions given X 4, 20:08 Patient left the ED. br2 Signatures: Dispatcher [employer] EDVT CristinaKady doherty, Reg Reg mr Olga Harris, RN RN ap3 Andrez Hall MD MD rt Kim Terry, FIOR RN br2
--- NOTE | 2024-06-12 19:54 | EDPHYS ---
Physician Documentation [facility] Name: Jarad Alexandra Age: 39 yrs Sex: Male : 1985 Arrival Date: 06/12/2024 Time: 17:32 Bed 12 Private MD: ED Physician Andrez Hall HPI: 06/12 18:36 This 39 yrs old Male presents to ER via Ambulatory with complaints of Arm Pain.rt 18:36 Patient presents to the ED with pain to the left arm. Started morphine utilized left rt hand, progressed up to the elbow and now up to the upper arm. Denies discrete injury. Denies other acute complaints at this time, symptoms are moderate in severity, no other aggravating or alleviating factors.. Historical: - Allergies: 17:52 Latex; ap3 - PMHx: 17:52 Panic Attacks; ap3 - PSHx: 17:52 Appendectomy; ap3 - Immunization history:: Client reports receiving the 2nd dose of the Covid vaccine, Flu vaccine is not up to date. - Infectious Disease History:: Denies. - Social history:: Smoking status: Reported history of juuling and/or vaping. - Family history:: not pertinent. ROS: 18:36 Constitutional: Negative for fever, chills, and weight loss, Cardiovascular: Negative rt for chest pain, palpitations, and edema, Respiratory: Negative for shortness of breath, cough, wheezing, and pleuritic chest pain, Abdomen/GI: Negative for abdominal pain, nausea, vomiting, diarrhea, and constipation, Skin: Negative for injury, rash, and discoloration, Neuro: Negative for headache, weakness, numbness, tingling, and seizure, 18:36 MS/extremity: Positive for pain, Negative for injury or acute deformity, Exam: 18:36 Constitutional: This is a well developed, well nourished patient who is awake, alert, rt and in no acute distress. Head/Face: Normocephalic, atraumatic. Neck: Trachea midline, no thyromegaly or masses palpated, and no cervical lymphadenopathy. Supple, full range of motion without nuchal rigidity, or vertebral point tenderness. No Meningismus. Chest/axilla: Normal chest wall appearance and motion. Nontender with no deformity. No lesions are appreciated. Cardiovascular: Regular rate and rhythm with a normal S1 and S2. No gallops, murmurs, or rubs. Normal PMI, no JVD. No pulse deficits. Respiratory: Lungs have equal breath sounds bilaterally, clear to auscultation and percussion. No rales, rhonchi or wheezes noted. No increased work of breathing, no retractions or nasal flaring. Abdomen/GI: Soft, non-tender, with normal bowel sounds. No distension or tympany. No guarding or rebound. No evidence of tenderness throughout. Skin: Warm, dry with normal turgor. Normal color with no rashes, no lesions, and no evidence of cellulitis. 18:36 Musculoskeletal/extremity: No swelling, deformity, tenderness to palpation on left upper extremity, full range of motion, pulses, motor, sensation are intact. Vital Signs: 17:50 BP 141 / 102; Pulse 94; Resp 18; Temp 98.4(TE); Pulse Ox 97% on R/A; Weight 136.98 kg; ap3 Height 6 ft. 2 in. ; Pain 10/10; 17:50 Body Mass Index 38.77 (136.98 kg, 187.96 cm) ap3 17:50 Pain Scale: Adult ap3 MDM: 18:01 Medical Screening Exam initiated rt 20:19 Differential diagnosis: Fracture, arthritis, radicular pain. Data reviewed: vital rt signs, nurses notes, radiologic studies. I considered the following discharge prescriptions or medication management in the emergency department Medications were administered in the Emergency Department. See MAR. Independent interpretation of the following test(s) in the Emergency Department X-Ray: My interpretation is No fracture seen on interpretation of x-ray images. Test considered but Not performed: Other Details No focal neurologic deficits, do not believe that CT scan of the neck or MRI are emergently indicated. Counseling: I had a detailed discussion with the patient and/or guardian regarding the historical points, exam findings, and any diagnostic results supporting the discharge/admit diagnosis, radiology results, the need for outpatient follow up. Response to treatment: the patient's symptoms have mildly improved after treatment. 06/12 18:04 Order name: Hand Left 3 View XRAY; Complete Time: 18:53 rt 06/12 18:04 Order name: Elbow Left 3 View XRAY; Complete Time: 18:53 rt 06/12 18:04 Order name: Shoulder Left (2 View) XRAY; Complete Time: 18:53 rt Administered Medications: 19:59 Drug: Gabapentin PO 300 mg PO once Route: PO; br2 20:07 Follow up: Response: Medication administered at discharge. br2 19:59 Drug: Methocarbamol PO 500 mg PO once Route: PO; br2 20:07 Follow up: Response: Medication administered at discharge. br2 20:00 Drug: Ketorolac IM 30 mg IM once Route: IM; Site: right gluteus; br2 20:07 Follow up: Response: Medication administered at discharge. br2 Disposition Summary: 06/12/24 19:53 Discharge Ordered Notes: Location: Home rt Problem: new rt Symptoms: are unchanged rt Condition: Stable rt Diagnosis - Pain in left arm rt Followup: rt - With: Private Physician - When: 2 - 3 days - Reason: Discharge Instructions: - Discharge Summary Sheet rt - Cervical Radiculopathy rt - Musculoskeletal Pain rt Forms: - Medication Reconciliation Form rt - Antibiotic Education rt - Prescription Opioid Use rt - Patient Portal Instructions rt - Leadership Thank You Letter rt Prescriptions: - gabapentin 300 mg Oral capsule - take 1 capsule ORAL route every 8 hours; 21 capsule; Refills: 0, Product rt Selection Permitted - Diclofenac Sodium 75 mg Oral Tablet Sustained Release - take 1 tablet ORAL route 2 times per day; 30 tablet; Refills: 0, Product rt Selection Permitted - Medrol ([place]) 4 mg Oral Tablets, Dose Pack - take 1 tablet ORAL route as directed - follow package instructions; 1 packet; rt Refills: 0, Product Selection Permitted - methocarbamol 500 mg Oral tablet - take 1 tablet ORAL route 4 times per day as needed; 15 tablet; Refills: 0, rt Product Selection Permitted Signatures: Dispatcher [employer] Olga Zambrano RN RN ap3 Andrez Hall MD MD rt Kim Terry RN RN br2
[2024-06-13 19:13] VITALS: BP 141/102; TEMP 98.4; O2SAT 97
== END 2024-06-12 20:08 | disposition home or self-care (01) ==
LOC: ER 17:32
DX: M79.622 Pain in left upper arm (principal)
CPT/HCPCS: 96372; 99284